=== PATIENT | female | born 1995 | race Caucasian/White ===

== ENCOUNTER 2019-10-29 11:25 | Inpatient (IN) ==
[2019-10-29] MEDS ORDERED: NS 0.9% 1000 ml BAG 2,000 ML IV ONE (11:53)
[2019-10-29 13:05] LABS: Hematocrit 37 % (35-47); Hemoglobin 12.8 g/dL (12.0-16.0); Mean Corpuscular HGB Conc 35 g/dL (31-36); Mean Corpuscular Hemoglobin 29 pg (27-31); Mean Corpuscular Volume 85 fL (80-97); Mean Platelet Volume 8.9 fL (7.4-10.4); Platelet Count 105 10^3/uL (150-450); Red Blood Count 4.38 10^6 /uL (3.70-4.87); Red Cell Distribution Width 13 % (10-15); White Blood Count 1.8 10^3/uL (3.5-10.8)
[2019-10-29 13:24] LABS: Albumin 4.2 g/dL (3.2-5.2); Albumin/Globulin Ratio 1.6 (1-3); BUN/Creatinine Ratio 9.3 (8-20); C Reactive Protein 208.85 mg/L (<8.01); Calcium 8.8 mg/dL (8.6-10.3); EGFR African American 97.3 (>60); EGFR Non-African American 80.4 (>60); Globulin 2.6 g/dL (2-4); Potassium 4.1 mmol/L (3.5-5.0); Total Bilirubin 0.6 mg/dL (0.2-1.0); Total Protein 6.8 g/dL (6.4-8.9)
[2019-10-29] MEDS ORDERED: Cefepime 2 GM in Dextrose(*) 2 GM/50 ML BAG IV ONE (13:41)
[2019-10-29 13:58] LABS: ABS Lymphocytes 0.6 10^3/ul (1.0-4.8); Eosinophil % 0.1 %; Lymphocyte % 32.1 %; Nucleated Red Blood Cells % 0.1
[2019-10-29] MEDS ORDERED: Piperacillin/Tazobac ADVAN(*) 3.375 GM in NS 0.9% 100 ml BAG 100 ML IVPB ONE (16:19)
[2019-10-29] MEDS ORDERED: NS 0.9% 1000 ml BAG 1,000 ML IV SCH (16:30)
[2019-10-29 16:57] LABS: Urine Appearance Cloudy; Urine Bilirubin Negative (Negative); Urine Blood 3+ (Negative); Urine Color Yellow; Urine Glucose Negative (Negative); Urine Ketones 2+ (Negative); Urine Nitrite Negative (Negative); Urine Protein 1+(30 mg/dL) (Negative); Urine Specific Gravity 1.012 (1.010-1.030); Urine Urobilinogen Negative (Negative)
[2019-10-29] MEDS ORDERED: Zosyn per Pharmacy NOTE FOLLOW UP SCH (17:00)
[2019-10-29 17:08] LABS: Urine Bacteria Absent (Absent); Urine Red Blood Cell 3+(>10/hpf) (Absent); Urine Squamous Epithelial Cell Present (Absent); Urine White Blood Cell 1+(6-10/hpf) (Absent)
[2019-10-29] MEDS: Ondansetron 4 mg VIAL 2 MG/ML 2 ml VIAL IV PRN (19:44)
[2019-10-29] MEDS: ZOSYN 3.375 GM Q8H per EXTENDED INFUSION IV SCH (21:31)
[2019-10-30] MEDS: ZOSYN 3.375 GM Q8H per EXTENDED INFUSION IV SCH ×3 (04:36→20:16)
[2019-10-30 07:53] LABS: Hematocrit 36 % (35-47); Hemoglobin 12.4 g/dL (12.0-16.0); Mean Corpuscular HGB Conc 35 g/dL (31-36); Mean Corpuscular Hemoglobin 29 pg (27-31); Mean Corpuscular Volume 85 fL (80-97); Mean Platelet Volume 8.9 fL (7.4-10.4); Platelet Count 105 10^3/uL (150-450); Red Blood Count 4.22 10^6 /uL (3.70-4.87); Red Cell Distribution Width 14 % (10-15)
[2019-10-30 08:07] LABS: ABS Lymphocytes 0.9 10^3/ul (1.0-4.8); ABS Monocytes 0.9 10^3/ul (0-0.8); Lymphocyte % 44.1 %; Nucleated Red Blood Cells % 0.1
[2019-10-30 08:13] LABS: BUN/Creatinine Ratio 8.8 (8-20); EGFR African American 127.6 (>60); EGFR Non-African American 105.4 (>60); Potassium 3.9 mmol/L (3.5-5.0)
[2019-10-30] MEDS ORDERED: LORazepam 2 mg VIAL 1 ml IV PUSH ONE (10:35)
[2019-10-30] MEDS ORDERED: Lorazepam PYXIS KEY PRN (10:35)
[2019-10-30] MEDS ORDERED: Phenol 1.4% Throat Spray 177 ml BTL MT PRN (13:18)
[2019-10-30 15:49] LABS: Rheumatoid Factor < 10 IU/mL (<15)
[2019-10-30] MEDS ORDERED: LORazepam 1 mg TAB (*) PO PRN (16:16)
[2019-10-30 17:00] LABS: Ferritin 148.2 ng/mL (11-307)
[2019-10-30 17:57] LABS: Rapid Strep Molecular Negative (Negative)
[2019-10-30] MEDS: TOPIRAMATE 100 MG PO SCH (20:16)
[2019-10-30] MEDS: Ondansetron 4 mg VIAL 2 MG/ML 2 ml VIAL IV PRN (20:24)
[2019-10-31 05:30] LABS: BUN/Creatinine Ratio 5.1 (8-20); Calcium 8.1 mg/dL (8.6-10.3); EGFR African American 150.3 (>60); EGFR Non-African American 124.2 (>60); Potassium 3.6 mmol/L (3.5-5.0)
[2019-10-31 05:37] LABS: Hematocrit 34 % (35-47); Hemoglobin 11.8 g/dL (12.0-16.0); Mean Corpuscular HGB Conc 35 g/dL (31-36); Mean Corpuscular Hemoglobin 30 pg (27-31); Mean Corpuscular Volume 84 fL (80-97); Mean Platelet Volume 8.2 fL (7.4-10.4); Platelet Count 121 10^3/uL (150-450); Red Blood Count 3.99 10^6 /uL (3.70-4.87); Red Cell Distribution Width 14 % (10-15); White Blood Count 2.4 10^3/uL (3.5-10.8)
[2019-10-31] MEDS: ZOSYN 3.375 GM Q8H per EXTENDED INFUSION IV SCH ×3 (05:47→21:29)
[2019-10-31 06:12] LABS: ABS Eosinophils 0.1 10^3/ul (0-0.6); ABS Lymphocytes 1.2 10^3/ul (1.0-4.8); Eosinophil % 3.9 %; Lymphocyte % 51.1 %; Nucleated Red Blood Cells % 0.1
[2019-10-31] MEDS: Topiramate 25 mg TAB (*) PO SCH (09:12)
[2019-10-31] MEDS: CMCS:Vortioxetine 10 mg TAB (NF) PO SCH (09:13)
[2019-10-31] MEDS ORDERED: guaiFENesin/CODIENE 100mg/10mg 5 ML UDC PO PRN (12:03)
[2019-10-31 13:20] LABS: HIV 4th Generation Nonreactive (Nonreactive)
[2019-10-31 13:58] LABS: Folate 5.07 ng/mL (>3.99)
[2019-10-31] MEDS: TOPIRAMATE 100 MG PO SCH (21:29)
[2019-11-01 05:28] LABS: Hematocrit 34 % (35-47); Hemoglobin 11.7 g/dL (12.0-16.0); Mean Corpuscular HGB Conc 35 g/dL (31-36); Mean Corpuscular Hemoglobin 29 pg (27-31); Mean Corpuscular Volume 84 fL (80-97); Mean Platelet Volume 7.7 fL (7.4-10.4); Platelet Count 135 10^3/uL (150-450); Red Blood Count 4.01 10^6 /uL (3.70-4.87); Red Cell Distribution Width 14 % (10-15); White Blood Count 2.7 10^3/uL (3.5-10.8)
[2019-11-01 05:35] LABS: Activated Partial Thrombo Time 28.6 seconds (26.0-38.0); INR 1.22 (0.82-1.09)
[2019-11-01 05:45] LABS: BUN/Creatinine Ratio 6.5 (8-20); C Reactive Protein 95.74 mg/L (<8.01); Calcium 8.3 mg/dL (8.6-10.3); EGFR African American 141.9 (>60); EGFR Non-African American 117.3 (>60); Magnesium 1.7 mg/dL (1.9-2.7); Potassium 3.6 mmol/L (3.5-5.0)
[2019-11-01 06:03] LABS: ABS Eosinophils 0.1 10^3/ul (0-0.6); ABS Lymphocytes 1.3 10^3/ul (1.0-4.8); ABS Monocytes 1.1 10^3/ul (0-0.8); Lymphocyte % 47.2 %; Nucleated Red Blood Cells % 0.1
[2019-11-01] MEDS: ZOSYN 3.375 GM Q8H per EXTENDED INFUSION IV SCH ×3 (06:03→20:53)
[2019-11-01] MEDS: Topiramate 25 mg TAB (*) PO SCH (08:09)
[2019-11-01] MEDS: CMCS:Vortioxetine 10 mg TAB (NF) PO SCH (08:09)
[2019-11-01 10:52] LABS: Cytomegalovirus IgG Antibody Negative (Negative); EBV Capsid Ag IgG Ab Positive (Negative); EBV Capsid Ag IgM Ab Equivocal (Negative); Epstein-Barr Nuclear Antigen Negative (Negative)
[2019-11-01 18:07] LABS: Myeloperoxidase Antibody <0.2 U
[2019-11-01 18:25] LABS: Fibrinogen 405.1 mg/dL (110.8-404.3)
[2019-11-01] MEDS: TOPIRAMATE 100 MG PO SCH (20:53)
[2019-11-02] MEDS: ZOSYN 3.375 GM Q8H per EXTENDED INFUSION IV SCH ×3 (04:30→20:15)
[2019-11-02 06:42] LABS: Hematocrit 35 % (35-47); Mean Corpuscular HGB Conc 35 g/dL (31-36); Mean Corpuscular Hemoglobin 29 pg (27-31); Mean Corpuscular Volume 84 fL (80-97); Mean Platelet Volume 7.5 fL (7.4-10.4); Platelet Count 170 10^3/uL (150-450); Red Blood Count 4.12 10^6 /uL (3.70-4.87); Red Cell Distribution Width 14 % (10-15); White Blood Count 2.7 10^3/uL (3.5-10.8)
[2019-11-02 06:58] LABS: BUN/Creatinine Ratio 8.5 (8-20); Calcium 8.4 mg/dL (8.6-10.3); EGFR African American 150.3 (>60); EGFR Non-African American 124.2 (>60); Potassium 3.2 mmol/L (3.5-5.0)
[2019-11-02] MEDS ORDERED: Potassium Chloride LIQUID 20 MEQ/15 ML LIQUID PO ONE (08:32)
[2019-11-02 08:40] LABS: Magnesium 1.9 mg/dL (1.9-2.7)
[2019-11-02] MEDS: CMCS:Vortioxetine 10 mg TAB (NF) PO SCH (09:16)
[2019-11-02] MEDS: Topiramate 25 mg TAB (*) PO SCH (09:16)
[2019-11-02 10:12] LABS: ABS Eosinophils 0.2 10^3/ul (0-0.6); ABS Lymphocytes 1.4 10^3/ul (1.0-4.8); ABS Monocytes 0.9 10^3/ul (0-0.8); Eosinophil % 5.8 %; Lymphocyte % 51.7 %; Nucleated Red Blood Cells % 0.1
[2019-11-02] MEDS: TOPIRAMATE 100 MG PO SCH (20:15)
[2019-11-03] MEDS: ZOSYN 3.375 GM Q8H per EXTENDED INFUSION IV SCH ×3 (04:53→21:10)
[2019-11-03 06:29] LABS: Hematocrit 35 % (35-47); Hemoglobin 12.1 g/dL (12.0-16.0); Mean Corpuscular HGB Conc 35 g/dL (31-36); Mean Corpuscular Hemoglobin 29 pg (27-31); Mean Corpuscular Volume 83 fL (80-97); Mean Platelet Volume 7.3 fL (7.4-10.4); Platelet Count 199 10^3/uL (150-450); Red Blood Count 4.19 10^6 /uL (3.70-4.87); Red Cell Distribution Width 14 % (10-15); White Blood Count 3.3 10^3/uL (3.5-10.8)
[2019-11-03 06:35] LABS: ABS Eosinophils 0.2 10^3/ul (0-0.6); ABS Lymphocytes 1.8 10^3/ul (1.0-4.8); ABS Monocytes 0.7 10^3/ul (0-0.8); Eosinophil % 6.5 %; Lymphocyte % 54.8 %; Nucleated Red Blood Cells % 0.1
[2019-11-03 06:46] LABS: BUN/Creatinine Ratio 9.5 (8-20); Calcium 8.7 mg/dL (8.6-10.3); EGFR African American 139.3 (>60); EGFR Non-African American 115.1 (>60); Potassium 3.4 mmol/L (3.5-5.0)
[2019-11-03] MEDS: Topiramate 25 mg TAB (*) PO SCH (08:07)
[2019-11-03] MEDS: CMCS:Vortioxetine 10 mg TAB (NF) PO SCH (08:07)
[2019-11-03] MEDS ORDERED: Potassium Chlor 20 meq TAB.ER PO ONE (08:21)
[2019-11-03] MEDS: TOPIRAMATE 100 MG PO SCH (21:26)
[2019-11-04] MEDS: ZOSYN 3.375 GM Q8H per EXTENDED INFUSION IV SCH (05:55)
[2019-11-04 06:23] LABS: Hematocrit 35 % (35-47); Hemoglobin 12.1 g/dL (12.0-16.0); Mean Corpuscular HGB Conc 35 g/dL (31-36); Mean Corpuscular Hemoglobin 29 pg (27-31); Mean Corpuscular Volume 84 fL (80-97); Mean Platelet Volume 7.7 fL (7.4-10.4); Platelet Count 204 10^3/uL (150-450); Red Blood Count 4.16 10^6 /uL (3.70-4.87); Red Cell Distribution Width 14 % (10-15); White Blood Count 4.6 10^3/uL (3.5-10.8)
[2019-11-04 06:43] LABS: Calcium 8.7 mg/dL (8.6-10.3); EGFR African American 129.8 (>60); EGFR Non-African American 107.2 (>60); Potassium 3.6 mmol/L (3.5-5.0)
[2019-11-04 06:48] LABS: ABS Basophils 0.1 10^3/ul (0-0.2); ABS Eosinophils 0.2 10^3/ul (0-0.6); ABS Lymphocytes 1.8 10^3/ul (1.0-4.8); ABS Monocytes 0.7 10^3/ul (0-0.8); Lymphocyte % 40.3 %
[2019-11-04] MEDS: CMCS:Vortioxetine 10 mg TAB (NF) PO SCH (07:21)
[2019-11-04] MEDS: Topiramate 25 mg TAB (*) PO SCH (07:21)
[2019-11-04 09:07] VITALS: BP 111/72
[2019-11-04 22:09] LABS: Complement C3 93 mg/dL (75 - 175)
[2019-11-05 14:43] LABS: AML Result Summary Normal; AML Source RPIC
[2019-11-06 15:17] LABS: BM Chromosome Source RPIC; BM Result Summary Normal
== END 2019-11-04 11:20 | disposition home or self-care (01) | DRG 808 ==
LOC: ED 11:25 → MED 11:25 → MEDTELE 10-30 06:42
PROVIDERS: ADMIT Internal Medicine; ATTEND Internal Medicine